=== PATIENT | female | born 1975 | race Caucasian/White ===

== ENCOUNTER 2023-10-01 07:20 | Outpatient (CLI) | payer OTHER ==
[~2023-10-01 07:20] MED LIST: DILTIAZEM ER180 MG
== END 2023-10-01 07:36 | disposition home or self-care (01) ==
LOC: TOM 07:20
PROVIDERS: ATTEND Internal Medicine Gastroenterology
DX: K74.60 Unspecified cirrhosis of liver (principal); C22.8 Malignant neoplasm of liver, primary, unspecified as to type

== ENCOUNTER 2023-11-26 07:29 | Outpatient (CLI) | payer OTHER | END 2023-11-26 07:31 | disposition home or self-care (01) | LOC: TOM 07:29 | PROVIDERS: ATTEND Internal Medicine | DX: K74.5 Biliary cirrhosis, unspecified (principal) ==